=== PATIENT | male | born 1950 | race Caucasian/White ===

== ENCOUNTER 2017-10-30 07:35 | Outpatient (CLI) | payer MEDICARE, OTHER ==
--- NOTE | 2017-10-30 09:05 | ULT ---
ULTRASOUND ABDOMEN: Date: 10/30/17 HISTORY: Elevated LFTs. R74.8. COMPARISON: None. TECHNIQUE: Real-time Wilson scale and color Doppler analysis of the abdomen was performed. FINDINGS: There is abnormal markedly increased hepatic echotexture. Pancreas not well seen. Visualized portions of the aorta and IVC are unremarkable. Spleen measures 9.0 cm in length. Gallbladder is normal. Gallbladder wall thickness is normal. Sonogr aphic Jackson's sign is negative. Common bile duct measures 4.0 mm. Right kidney measures 12.0 x 4.5 x 5.6 cm. Left kidney measures 12.3 x 5.6 x 5.9 cm. No renal mass, h ydronephrosis, or abnormal calcifications. IMPRESSION: Diffuse hepatic steatosis. POS: [facility]
== END 2017-10-30 07:36 | disposition home or self-care (01) ==
LOC: NAV ULT 07:35
PROVIDERS: ATTEND Family Medicine
DX: R74.8 Abnormal levels of other serum enzymes (principal); K76.0 Fatty (change of) liver, not elsewhere classified
CPT/HCPCS: 76700